=== PATIENT | male | born 1960 | race Caucasian/White ===

== ENCOUNTER 2018-02-18 05:37 | Emergency (ER) | payer MEDICARE, MEDICAID ==
[~2018-02-18] VITALS: Ht 172.7 cm; Wt 119.2 kg
[2018-02-18 05:41] VITALS: BP 164/108
[2018-02-18 07:44] LABS: MICROSCOPIC INDICATED
[2018-02-18 07:45] LABS: CULTURE INDICATED? YES
== END 2018-02-18 08:21 | disposition home or self-care (01) ==
LOC: ED 08:10
DX: I86.1 Scrotal varices (principal); I10 Essential (primary) hypertension
CPT/HCPCS: 76870; 81001; 87077; 87086; 87186; 93975; 99285

== ENCOUNTER 2019-03-27 19:57 | Emergency (ER) | payer MEDICARE, MEDICAID ==
[~2019-03-27] VITALS: Ht 172.7 cm; Wt 118.8 kg
[2019-03-27 20:00] VITALS: BP 140/84
[2019-03-27] MEDS ORDERED: OXYC30TA66 PO (20:03)
[2019-03-27] MEDS ORDERED: LISI-167 PO (20:03)
[2019-03-27] MEDS ORDERED: DEXAMETHASONE 4 MG TABLET ONE (20:45)
[2019-03-27] MEDS ORDERED: DEXAMETHASONE 4 MG TABLET PO ONE (21:00)
--- NOTE | 2019-03-27 21:40 | NUR ---
D/C INSTRUCTIONS RV'WD WITH PT, HE VERBALIZES UNDERSTANDING. AMBULATED OUT OF ED WITHOUT DIFFICULTY.
== END 2019-03-27 21:41 | disposition home or self-care (01) ==
LOC: ED 21:40
DX: J02.9 Acute pharyngitis, unspecified (principal); I10 Essential (primary) hypertension; G89.29 Other chronic pain; Z90.89 Acquired absence of other organs
CPT/HCPCS: 87081; 87147; 87880; 99283

== ENCOUNTER 2020-07-21 09:51 | Outpatient (CLI) | payer MEDICARE, MEDICAID ==
[~2020-07-21 09:51] MED LIST: LISI-167 PO; OXYC30TA66 PO
== END 2020-07-21 23:59 | disposition home or self-care (01) ==
LOC: STAR 09:51 → RAD 23:59
PROVIDERS: ATTEND Surgery
DX: Z01.818 Encounter for other preprocedural examination (principal); I10 Essential (primary) hypertension; E66.01 Morbid (severe) obesity due to excess calories
CPT/HCPCS: 71046; 93005

== ENCOUNTER → 2020-08-15 | Outpatient (CLI) | payer MEDICARE, MEDICAID | END | disposition home or self-care (01) | LOC: RAD 08:24 | PROVIDERS: ATTEND Surgery | DX: Z01.818 Encounter for other preprocedural examination (principal); I10 Essential (primary) hypertension; E66.01 Morbid (severe) obesity due to excess calories; K44.9 Diaphragmatic hernia without obstruction or gangrene; Z98.84 Bariatric surgery status | CPT/HCPCS: 74240 ==